=== PATIENT | female | born 1965 | race Caucasian/White ===

== ENCOUNTER 2018-05-18 12:29 | Emergency (ER) | payer BC ==
[2018-05-18] MEDS ORDERED: Sodium Chloride 0.9% 10 ML Syringe FLUSH PRN (12:30)
--- NOTE | 2018-05-18 12:30 | EDM.PDOC ---
ED HPI GENERAL MEDICAL PROBLEM - General Chief Complaint: Chest Pain Stated Complaint: CHEST PAIN, HIGH BP [id number] Time Seen by Provider: 05/18/18 12:30 Source of Information: Reports: Patient, EMS, Old Records, RN, RN Notes Reviewed History Limitations: Reports: No Limitations - History of Present Illness INITIAL COMMENTS - FREE TEXT/NARRATIVE: Pt arrives to ER by [facility] from work with c/o chest pain/ pressure, high BP, palpitations, and recurrent near syncope. EMS gave the pt Aspirin 324mg po x1 and Nitroglycerin 0.4mg SL x1 prior to arrival to the ER. Pt reports that the NTG made the chest pain go completely away. Pt reports onset of recurrent chest pain, palpitations, and syncope/near syncope about 2 or 3 weeks ago. She saw Yany CACERES in clinic about 2 weeks ago and her losartan was increased from 50mg to 100mg. She was referred for a cardiac stress test which she had done on 05/02/18, and reported as negative for cardiac ischemia. She followed up in clinic with Yany CACERES and was switched from Metoprolol to Atenolol. She has been referred to cardiology, but cannot be seen there for another 2 weeks. 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 Pt reports feeling fatigued for several weeks. On several occasions she has experienced tingling on her face and slightly slurred speech. When she has the lightheadedness she also feels that she becomes mentally "foggy". 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 x1 from paramedics) - Related Data Allergies Allergy/AdvReac Type Severity Reaction Status Date / Time carbamazepine [From Tegretol] Allergy Airway Verified 12/01/16 15:49 Tightness phenytoin sodium Allergy Airway Verified 12/01/16 15:49 [From Dilantin] Tightness phenytoin sodium extended Allergy Airway Verified 12/01/16 15:49 [From Dilantin] Tightness primidone [From Mysoline] Allergy Airway Verified 12/01/16 15:49 Tightness Home Meds: Home Meds Losartan [Cozaar] 100 mg PO DAILY 11/25/16 [History] Pantoprazole Sodium 40 mg PO DAILY 11/25/16 [History] Simvastatin 20 mg PO DAILY 11/25/16 [History] Aspirin [Ecotrin] 81 mg PO DAILY 05/02/18 [History] Past Medical History Other HEENT History: c/o ringing in ears, sometimes one ear, sometimes both for the last 2 weeks Cardiovascular History: Reports: High Cholesterol, Hypertension Other Cardiovascular History: has had irregular heart beat in the past. Denies any specific arrhythmia. Gastrointestinal History: Reports: GERD Genitourinary History: Reports: Renal Disease (renal artery stenosis) Other Genitourinary History: reports she has passed a small kidney stone in the past Musculoskeletal History: Reports: Fibromyalgia Other Neuro History: History of migraines, history of head injury and seizures during childhood. Endocrine/Metabolic History: Reports: Obesity/BMI 30+ Hematologic History: Reports: B12 Deficiency Other Hematologic History: History of iron infusions and low ferritin level - Past Surgical History Other Musculoskeletal Surgeries/Procedures:: right hip replacement Social & Family History - Family History Cardiac: Reports: Heart Failure (Mother of CHF.), PR (Father alive with history of PR in 50's, and PR x3 total.), Pacemaker (Father) - Tobacco Use Smoking Status *Q: Never Smoker - Caffeine Use Caffeine Use: Reports: Coffee Other Caffeine Use: 2 CUPS OF COFFEE AVERAGE DAILY - Alcohol Use Alcohol Use History: No - Living Situation & Occupation Living situation: Reports: , with Spouse Occupation: Employed ED ROS GENERAL - Review of Systems Review Of Systems: ROS reveals no pertinent complaints other than HPI. ED EXAM, GENERAL - Physical Exam Exam: See Below Exam Limited By: No Limitations General Appearance: Alert, WD/WN, No Apparent Distress, Anxious, Obese Eye Exam: Bilateral Eye: Normal Inspection Ears: Hearing Grossly Normal Nose: Normal Inspection, Normal Mucosa, No Blood Throat/Mouth: Normal Inspection, Normal Lips, Normal Voice, No Airway Compromise Head: Atraumatic, Normocephalic Neck: Normal Inspection, Supple, Non-Tender, Full Range of Motion Respiratory/Chest: No Respiratory Distress, Lungs Clear, Normal Breath Sounds, No Accessory Muscle Use, Chest Non-Tender Cardiovascular: Regular Rate, Rhythm, No Gallop, No JVD, No Murmur, No Rub, Extra Beats, Other (Trace edema B/L lower exts.) GI/Abdominal: Normal Bowel Sounds, Soft, Non-Tender, No Distention (Female) Exam: Deferred Rectal (Female) Exam: Deferred Back Exam: Normal Inspection, Full Range of Motion Extremities: Normal Range of Motion, Non-Tender, No Pedal Edema, Normal Capillary Refill, Pedal Edema (Trace). No: Joint Swelling, Nelly's Sign Neurological: Alert, Oriented, CN II-XII Intact, Normal Cognition, Normal Gait, No Motor/Sensory Deficits Psychiatric: Normal Affect, Normal Mood, Anxious Skin Exam: Warm, Dry, Intact, Normal Color, No Rash EKG INTERPRETATION EKG Date: 05/18/18 Time: 12:39 Rhythm: Other (SR) [place]: LAD-Left Hammond Deviation (LVH) P-Wave: Present QRS: Normal ST-T: Normal QT: Normal Comparison: No Change EKG Interpretation Comments: No acute ischemic change. Course - Vital Signs Last Recorded V/S: Last Vital Signs Temp 37.0 C 05/18/18 14:18 Pulse 61 05/18/18 14:18 Resp 16 05/18/18 14:18 BP 118/77 05/18/18 14:18 Pulse Ox 100 05/18/18 14:18 Orthostatic Blood Pressure [ 119/83 Standing] Orthostatic Blood Pressure [ 153/78 Sitting] Orthostatic Blood Pressure [ 139/73 Supine] Orthostatic sBP drop from 153 to 119 without dizziness or other symptoms. - Orders/Labs/Meds Orders: Active Orders 24 hr Category Date Time Status EKG 12 Lead [EKG Documentation Completion] [RC] STAT Care 05/18/18 12:30 Active Orthostatic Vital Signs [RC] ASDIRECTED Care 05/18/18 13:15 Active Peripheral IV Care [RC] . DIRECTED Care 05/18/18 12:31 Active Sodium Chloride 0.9% [Saline Flush] Med 05/18/18 12:30 Active 10 ml FLUSH ASDIRECTED PRN Peripheral IV Insertion Adult [OM.PC] Stat Oth 05/18/18 12:30 Ordered Medication Orders Sodium Chloride (Saline Flush) 10 ml FLUSH ASDIRECTED PRN PRN Reason: Keep Vein Open Labs: Laboratory Tests 05/18/18 05/18/18 05/18/18 Range/Units 12:40 12:40 12:40 WBC 6.1 (5.0-10.0) 10^3/uL RBC 4.32 (4.2-5.4) 10^6/uL Hgb 13.3 (12.0-16.0) g/dL Hct 40.6 (37.0-47.0) % MCV 94.0 (80-100) fL MCH 30.8 (27.0-34.0) pg MCHC 32.8 L (33.0-35.0) g/dL Plt Count 218 (150-450) 10^3/uL Neut % (Auto) 59.8 (42.2-75.2) % Lymph % (Auto) 29.7 (20.5-50.1) % Jack % (Auto) 7.2 (2-8) % Eos % (Auto) 2.8 (1.0-3.0) % Baso % (Auto) 0.5 (0.0-1.0) % PT 9.0 (9.0-12.0) SEC INR 0.9 (0.9-1.2) APTT 24.0 (22.0-34.0) SEC D-Dimer, Quantitative < 100 (0-400) ng/mL Sodium 142 (135-145) mmol/L Potassium 4.0 (3.6-5.0) mmol/L Chloride 106 (101-111) mmol/L Carbon Dioxide 29.0 (21.0-31.0) mmol/L Anion Gap 11.0 BUN 13 (7-18) mg/dL Creatinine 0.9 (0.6-1.3) mg/dL Est Cr Clr Drug Dosing 72.92 mL/min Estimated GFR (MDRD) > 60 BUN/Creatinine Ratio 14.44 Glucose 116 H (74-105) mg/dL Calcium 9.1 (8.4-10.2) mg/dl Total Bilirubin 0.5 (0.2-1.0) mg/dL AST 21 (10-42) IU/L ALT 22 (10-60) IU/L Alkaline Phosphatase 62 (42-121) IU/L Troponin I < 0.02 (0.00-0.02) ng/ml Total Protein 7.0 (6.7-8.2) g/dl Albumin 4.3 (3.2-5.5) g/dl Globulin 2.7 Albumin/Globulin Ratio 1.59 Lipase 25 (22-51) U/L Urine Color (YELLOW) Urine Appearance (CLEAR) Urine pH (5.0-9.0) Ur Specific [place] (1.005-1.030) Urine Protein (NEGATIVE) Urine Glucose (UA) (NEGATIVE) Urine Ketones (NEGATIVE) Urine Occult Blood (NEGATIVE) Urine Nitrite (NEGATIVE) Urine Bilirubin (NEGATIVE) Urine Urobilinogen (0.2-1.0) mg/dL Ur Leukocyte Esterase (NEGATIVE) Urine RBC /HPF Urine WBC (0-5/HPF) /HPF Ur Epithelial Cells /HPF Urine Bacteria (0-FEW/HPF) /HPF Urine Opiates Screen (NEGATIVE) Ur Oxycodone Screen (NEGATIVE) Urine Methadone Screen (NEGATIVE) Ur Barbiturates Screen (NEGATIVE) U Tricyclic Antidepress (NEGATIVE) Ur Phencyclidine Scrn (NEGATIVE) Ur Amphetamine Screen (NEGATIVE) U Methamphetamines Scrn (NEGATIVE) Urine MDMA Screen (NEGATIVE) U Benzodiazepines Scrn (NEGATIVE) Urine Cocaine Screen (NEGATIVE) U Marijuana (THC) Screen (NEGATIVE) Ethyl Alcohol < 5 mg/dL 05/18/18 05/18/18 Range/Units 13:01 13:01 WBC (5.0-10.0) 10^3/uL RBC (4.2-5.4) 10^6/uL Hgb (12.0-16.0) g/dL Hct (37.0-47.0) % MCV (80-100) fL MCH (27.0-34.0) pg MCHC (33.0-35.0) g/dL Plt Count (150-450) 10^3/uL Neut % (Auto) (42.2-75.2) % Lymph % (Auto) (20.5-50.1) % Jack % (Auto) (2-8) % Eos % (Auto) (1.0-3.0) % Baso % (Auto) (0.0-1.0) % PT (9.0-12.0) SEC INR (0.9-1.2) APTT (22.0-34.0) SEC D-Dimer, Quantitative (0-400) ng/mL Sodium (135-145) mmol/L Potassium (3.6-5.0) mmol/L Chloride (101-111) mmol/L Carbon Dioxide (21.0-31.0) mmol/L Anion Gap BUN (7-18) mg/dL Creatinine (0.6-1.3) mg/dL Est Cr Clr Drug Dosing mL/min Estimated GFR (MDRD) BUN/Creatinine Ratio Glucose (74-105) mg/dL Calcium (8.4-10.2) mg/dl Total Bilirubin (0.2-1.0) mg/dL AST (10-42) IU/L ALT (10-60) IU/L Alkaline Phosphatase (42-121) IU/L Troponin I (0.00-0.02) ng/ml Total Protein (6.7-8.2) g/dl Albumin (3.2-5.5) g/dl Globulin Albumin/Globulin Ratio Lipase (22-51) U/L Urine Color Yellow (YELLOW) Urine Appearance Clear (CLEAR) Urine pH 7.0 (5.0-9.0) Ur Specific [place] 1.015 (1.005-1.030) Urine Protein Negative (NEGATIVE) Urine Glucose (UA) Negative (NEGATIVE) Urine Ketones Negative (NEGATIVE) Urine Occult Blood Small H (NEGATIVE) Urine Nitrite Negative (NEGATIVE) Urine Bilirubin Negative (NEGATIVE) Urine Urobilinogen 0.2 (0.2-1.0) mg/dL Ur Leukocyte Esterase Negative (NEGATIVE) Urine RBC 5-10 H /HPF Urine WBC 0-5 (0-5/HPF) /HPF Ur Epithelial Cells Few /HPF Urine Bacteria Rare (0-FEW/HPF) /HPF Urine Opiates Screen Negative (NEGATIVE) Ur Oxycodone Screen Negative (NEGATIVE) Urine Methadone Screen Negative (NEGATIVE) Ur Barbiturates Screen Negative (NEGATIVE) U Tricyclic Antidepress Negative (NEGATIVE) Ur Phencyclidine Scrn Negative (NEGATIVE) Ur Amphetamine Screen Negative (NEGATIVE) U Methamphetamines Scrn Negative (NEGATIVE) Urine MDMA Screen Negative (NEGATIVE) U Benzodiazepines Scrn Negative (NEGATIVE) Urine Cocaine Screen Negative (NEGATIVE) U Marijuana (THC) Screen Negative (NEGATIVE) Ethyl Alcohol mg/dL Meds: Medications Generic Name Dose Route Start Last Admin Trade Name Freq PRKayeln Reason Stop Dose Admin Sodium Chloride 10 ml 05/18/18 12:30 Saline Flush FLUSH ASDIRECTED PRN Keep Vein Open - Radiology Interpretation Free Text/Narrative:: CXR: no acute process, see Rad. report. - Re-Assessments/Exams Free Text/Narrative Re-Assessment/Exam: 05/18/18 14:10 Pt's ER evaluation is negative for AMI/ACS, however I concerned about the recurring syncope/near syncope she has been experiencing. Exam and negative D- dimer make her very low risk for a P.E. Plan to transfer the pt to [facility] for observation and further evaluation. I do not think it is in the pt's best interest to wait for an outpt. clinic evaluation, given her description of the symptoms and their recurrent nature. Departure - Departure Time of Disposition: 14:20 Disposition: DC/Tfer to [facility] 02 Reason for Transfer *Q: Primary PCI Indicated Condition: Serious Clinical Impression: Recurrent syncope, Palpitations Chest pain Qualifiers: Chest pain type: unspecified Qualified Code(s): R07.9 - Chest pain, unspecified Referrals: Verónica Live PA-C [Primary Care Provider] - Forms: ED Department Discharge, Interfacility Transfer EMTALA - My Orders Last 24 Hours: My Active Orders 05/18/18 12:30 EKG 12 Lead [EKG Documentation Completion] [RC] STAT Sodium Chloride 0.9% [Saline Flush] 10 ml FLUSH ASDIRECTED PRN Peripheral IV Insertion Adult [OM.PC] Stat 05/18/18 12:31 Peripheral IV Care [RC] . DIRECTED 05/18/18 13:15 Orthostatic Vital Signs [RC] ASDIRECTED - Assessment/Plan Last 24 Hours: My Active Orders 05/18/18 12:30 EKG 12 Lead [EKG Documentation Completion] [RC] STAT Sodium Chloride 0.9% [Saline Flush] 10 ml FLUSH ASDIRECTED PRN Peripheral IV Insertion Adult [OM.PC] Stat 05/18/18 12:31 Peripheral IV Care [RC] . DIRECTED 05/18/18 13:15 Orthostatic Vital Signs [RC] ASDIRECTED
[2018-05-18 13:07] LABS: CHLORIDE,CL 106 mmol/L (101-111); SODIUM,NA 142 mmol/L (135-145)
--- NOTE | 2018-05-18 13:38 | CR ---
Clinical history: 53-year-old female chest pain. Interpretation: Less than optimal inspiratory effort (upright AP film) obese female. No acute new cardiopulmonary abnormality identified in the interval since 11 June 2015 exam. 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 No new signs of alveolar edema or dependent effusion. No new lung mass, hilar lymphadenopathy or focal lobar pneumonia.
[2018-05-18 15:55] VITALS: BP 141/97
== END 2018-05-18 16:00 ==
LOC: SUPCPDRO 12:29 → DL.ED 12:29
DX: R00.2 Palpitations (principal); R55 Syncope and collapse; R07.9 Chest pain, unspecified; E78.00 Pure hypercholesterolemia, unspecified; I10 Essential (primary) hypertension; Z88.8 Allergy status to other drugs, medicaments and biological substances; Z79.899 Other long term (current) drug therapy
CPT/HCPCS: 36415; 71045; 80053; 80305; 81001; 83690; 84484; 85025; 85379; 85610; 85730; 93005; 99285; G0480

== ENCOUNTER 2018-10-23 10:01 | Emergency (ER) | payer BC ==
[2018-10-23] MEDS ORDERED: Ondansetron 4 MG/2 ML SDV IV ONE (10:37)
[2018-10-23 10:40] VITALS: BP 143/76
[2018-10-23 10:59] LABS: ANION GAP 14.5; CHLORIDE,CL 103 mmol/L (101-111); SODIUM,NA 137 mmol/L (135-145)
--- NOTE | 2018-10-23 12:32 | CT ---
Clinical history: 53-year-old female with nausea, light headedness and recent "syncopal episode" who was reported on previous MRI scan of the head, March 2008, to have "punctate white matter abnormalities involving primarily the right frontal lobe (nonspecific) and sinusitis". Scan technique: Volume acquisition of data unenhanced CT scan of the head and brain obtained while the patient was lying supine on the Siemens multi slice scanner [place], [place]. All data archived in the PACS system for storage, reformatting axial/sagittal/coronal planes and study. Interpretation: 1. Symmetric clear pneumatization of the paranasal and mastoid sinuses i.e. no current signs of mucoperiosteal inflammation. 2. Uniformly thick bony calvarium without sign of pathologic skeletal lesion, skull fracture or underlying brain contusion. No abnormal extracerebral/intracranial epidural or subdural hematoma (physiologic midline falx calcifications anteriorly). 3. Symmetric noble-white matter pattern and underlying mirror-image normal ventricular system (no hydrocephalus). Pineal Ca++. 4. No supratentorial or posterior fossa mass lesion. No sign of intracranial aneurysm or arteriovenous malformation (unenhanced). Physiologic midline pineal and symmetric choroid plexus calcifications. 5. No ischemic infarct and no signs of acute intracerebral/intraventricular/subarachnoid bleed. CONCLUSION: Negative unenhanced CT scan of the head
--- NOTE | 2018-10-23 12:45 | EDM.PDOC ---
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 Patient states she passed out and her blood pressure has been high. She states she sees Dr. Macias and was recently started on another blood pressure med. Patient's co-workers state the patient "Went down and got right back up again". Blood pressure at that time was 180s/120s. She states she had pressure in the back of the head just prior to the episode. Her speech was not coming out right but now resolved. She has had nausea, lightheadedness, shortness of breath and chills. She has had no vomiting, chest pain, fever, recent illness or diarrhea. Onset: Today Duration: Improving Location: Reports: Generalized Quality: Reports: Ache Severity: Severe Improves with: Reports: None Worsens with: Reports: None Associated Symptoms: Reports: No Other Symptoms - Related Data Allergies Allergy/AdvReac Type Severity Reaction Status Date / Time carbamazepine [From Tegretol] Allergy Airway Verified 10/23/18 10:32 Tightness phenytoin sodium Allergy Airway Verified 10/23/18 10:32 [From Dilantin] Tightness phenytoin sodium extended Allergy Airway Verified 10/23/18 10:32 [From Dilantin] Tightness primidone [From Mysoline] Allergy Airway Verified 10/23/18 10:32 Tightness Home Meds: Home Meds Losartan [Cozaar] 100 mg PO DAILY 11/25/16 [History] Pantoprazole Sodium 40 mg PO DAILY 11/25/16 [History] Simvastatin 20 mg PO DAILY 11/25/16 [History] Aspirin [Ecotrin] 81 mg PO DAILY 05/02/18 [History] Amoxicillin 500 mg PO QID 06/28/18 [History] NIFEdipine [Nifedipine ER] 30 mg PO DAILY 06/28/18 [History] Past Medical History Other HEENT History: c/o ringing in ears, sometimes one ear, sometimes both for the last 2 weeks Cardiovascular History: Reports: High Cholesterol, Hypertension Other Cardiovascular History: has had irregular heart beat in the past. Denies any specific arrhythmia. Gastrointestinal History: Reports: GERD Genitourinary History: Reports: Renal Disease, Other (See Below) (renal stenosis ) Other Genitourinary History: reports she has passed a small kidney stone in the past Musculoskeletal History: Reports: Fibromyalgia Other Neuro History: History of migraines, history of head injury and seizures during childhood. Endocrine/Metabolic History: Reports: Obesity/BMI 30+ Hematologic History: Reports: B12 Deficiency Other Hematologic History: History of iron infusions and low ferritin level - Past Surgical History Other Musculoskeletal Surgeries/Procedures:: right hip replacement Social & Family History - Family History Cardiac: Reports: Heart Failure, ID, Pacemaker - Tobacco Use Smoking Status *Q: Never Smoker - Caffeine Use Caffeine Use: Reports: Coffee Other Caffeine Use: 2 CUPS OF COFFEE AVERAGE DAILY - Recreational Drug Use Recreational Drug Use: No - Living Situation & Occupation Living situation: Reports: , with Spouse Occupation: Employed ED ROS GENERAL - Review of Systems Review Of Systems: ROS reveals no pertinent complaints other than HPI. - Physical Exam Exam: See Below Exam Limited By: No Limitations General Appearance: Alert, WD/WN, No Apparent Distress Eye Exam: Bilateral Eye: EOMI, Normal Inspection, PERRL Ears: Normal External Exam, Normal Canal, Hearing Grossly Normal, Normal TMs Nose: Normal Inspection, Normal Mucosa, No Blood Throat/Mouth: Normal Inspection, Normal Lips, Normal Teeth, Normal Gums, Normal Oropharynx, Normal Voice, No Airway Compromise Head Exam: Atraumatic, Normocephalic Neck: Normal Inspection, Supple, Non-Tender, Full Range of Motion Respiratory/Chest: No Respiratory Distress, Lungs Clear, Normal Breath Sounds, No Accessory Muscle Use, Chest Non-Tender Cardiovascular: Normal Peripheral Pulses, Regular Rate, Rhythm, No Edema, No Gallop, No JVD, No Murmur, No Rub GI/Abdominal: Normal Bowel Sounds, Soft, Non-Tender, No Organomegaly, No Distention, No Abnormal Bruit, No Mass (Female) Exam: Deferred Rectal (Female) Exam: Deferred Neuro Exam (Abbreviated): Alert, Oriented, CN II-XII Intact, Normal Cognition, Normal Gait, Normal Reflexes, No Motor/Sensory Deficits Back Exam: Normal Inspection, Full Range of Motion, NT Extremities: Normal Inspection, Normal Range of Motion, Non-Tender, No Pedal Edema, Normal Capillary Refill Psychiatric: Normal Affect, Normal Mood Skin Exam: Warm, Dry, Intact, Normal Color, No Rash EKG INTERPRETATION EKG Date: 10/23/18 Time: 10:16 Rhythm: Other (sinus rhythm) Rate (Beats/Min): 72 [place]: Normal P-Wave: Present QRS: Normal ST-T: Normal QT: Normal Course - Vital Signs Last Recorded V/S: Last Vital Signs Temp 98.3 F 10/23/18 10:33 Pulse 83 10/23/18 10:33 Resp 16 10/23/18 10:33 BP 143/76 H 10/23/18 10:33 Pulse Ox 99 10/23/18 10:33 - Orders/Labs/Meds Labs: Laboratory Tests 10/23/18 10/23/18 10/23/18 Range/Units 10:21 10:21 10:21 WBC 5.5 (5.0-10.0) 10^3/uL RBC 4.43 (4.2-5.4) 10^6/uL Hgb 14.0 (12.0-16.0) g/dL Hct 42.0 (37.0-47.0) % MCV 94.8 (80-100) fL MCH 31.6 (27.0-34.0) pg MCHC 33.3 (33.0-35.0) g/dL Plt Count 214 (150-450) 10^3/uL Neut % (Auto) 55.8 (42.2-75.2) % Lymph % (Auto) 31.3 (20.5-50.1) % [place] % (Auto) 8.9 H (2-8) % Eos % (Auto) 3.5 H (1.0-3.0) % Baso % (Auto) 0.5 (0.0-1.0) % PT 8.8 L (9.0-12.0) SEC INR 0.9 (0.9-1.2) Sodium 137 (135-145) mmol/L Potassium 4.5 (3.6-5.0) mmol/L Chloride 103 (101-111) mmol/L Carbon Dioxide 24.0 (21.0-31.0) mmol/L Anion Gap 14.5 BUN 13 (7-18) mg/dL Creatinine 0.9 (0.6-1.3) mg/dL Est Cr Clr Drug Dosing 72.92 mL/min Estimated GFR (MDRD) > 60 BUN/Creatinine Ratio 14.44 Glucose 89 (74-105) mg/dL Calcium 9.1 (8.4-10.2) mg/dl Total Bilirubin 0.6 (0.2-1.0) mg/dL AST 18 (10-42) IU/L ALT 20 (10-60) IU/L Alkaline Phosphatase 66 (42-121) IU/L Troponin I < 0.02 (0.00-0.02) ng/ml Total Protein 6.9 (6.7-8.2) g/dl Albumin 4.3 (3.2-5.5) g/dl Globulin 2.6 Albumin/Globulin Ratio 1.65 Urine Color (YELLOW) Urine Appearance (CLEAR) Urine pH (5.0-9.0) Ur Specific [place] (1.005-1.030) Urine Protein (NEGATIVE) Urine Glucose (UA) (NEGATIVE) Urine Ketones (NEGATIVE) Urine Occult Blood (NEGATIVE) Urine Nitrite (NEGATIVE) Urine Bilirubin (NEGATIVE) Urine Urobilinogen (0.2-1.0) mg/dL Ur Leukocyte Esterase (NEGATIVE) Urine RBC /HPF Urine WBC (0-5/HPF) /HPF Ur Epithelial Cells /HPF Urine Bacteria (0-FEW/HPF) /HPF /08/01 Range/Units 11:03 WBC (5.0-10.0) 10^3/uL RBC (4.2-5.4) 10^6/uL Hgb (12.0-16.0) g/dL Hct (37.0-47.0) % MCV (80-100) fL MCH (27.0-34.0) pg MCHC (33.0-35.0) g/dL Plt Count (150-450) 10^3/uL Neut % (Auto) (42.2-75.2) % Lymph % (Auto) (20.5-50.1) % [place] % (Auto) (2-8) % Eos % (Auto) (1.0-3.0) % Baso % (Auto) (0.0-1.0) % PT (9.0-12.0) SEC INR (0.9-1.2) Sodium (135-145) mmol/L Potassium (3.6-5.0) mmol/L Chloride (101-111) mmol/L Carbon Dioxide (21.0-31.0) mmol/L Anion Gap BUN (7-18) mg/dL Creatinine (0.6-1.3) mg/dL Est Cr Clr Drug Dosing mL/min Estimated GFR (MDRD) BUN/Creatinine Ratio Glucose (74-105) mg/dL Calcium (8.4-10.2) mg/dl Total Bilirubin (0.2-1.0) mg/dL AST (10-42) IU/L ALT (10-60) IU/L Alkaline Phosphatase (42-121) IU/L Troponin I (0.00-0.02) ng/ml Total Protein (6.7-8.2) g/dl Albumin (3.2-5.5) g/dl Globulin Albumin/Globulin Ratio Urine Color Yellow (YELLOW) Urine Appearance Clear (CLEAR) Urine pH 7.0 (5.0-9.0) Ur Specific [place] 1.010 (1.005-1.030) Urine Protein Negative (NEGATIVE) Urine Glucose (UA) Negative (NEGATIVE) Urine Ketones Negative (NEGATIVE) Urine Occult Blood Trace-lysed H (NEGATIVE) Urine Nitrite Negative (NEGATIVE) Urine Bilirubin Negative (NEGATIVE) Urine Urobilinogen 0.2 (0.2-1.0) mg/dL Ur Leukocyte Esterase Trace H (NEGATIVE) Urine RBC 0-5 /HPF Urine WBC 0-5 (0-5/HPF) /HPF Ur Epithelial Cells Not seen /HPF Urine Bacteria Rare (0-FEW/HPF) /HPF Meds: Medications Discontinued Medications Generic Name Dose Route Start Last Admin Trade Name Freq PRN Reason Stop Dose Admin Ondansetron HCl 4 mg 10/23/18 10:37 10/23/18 10:41 Zofran IV 10/23/18 10:38 4 mg ONETIME ONE Administration - Radiology Interpretation Free Text/Narrative:: Head CT: No acute findings See rad report Departure - Departure Time of Disposition: 12:45 Disposition: Home, Self-Care 01 Condition: Fair Clinical Impression: Syncope Qualifiers: Syncope type: unspecified Qualified Code(s): R55 - Syncope and collapse - Discharge Information *PRESCRIPTION DRUG MONITORING PROGRAM REVIEWED*: No *COPY OF PRESCRIPTION DRUG MONITORING REPORT IN PATIENT SHANI: No Instructions: Syncope, [id number] Referrals: Opal Macias MD [Primary Care Provider] - Forms: ED Department Discharge Additional Instructions: Drink plenty of water Follow up with your primary care facility
--- NOTE | 2018-10-24 10:17 | CR ---
CLINICAL HISTORY: 53-year-old female with "syncopal episode". 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 Normal cardiac silhouette without cephalization of flow, signs of alveolar edema or dependent pleural fluid accumulation. Isolated small eventration right hemidiaphragm. No lung mass, hilar lymphadenopathy or focal lobar pneumonia. No atelectasis/collapse. No pneumothorax. CONCLUSION: No acute cardiopulmonary abnormality.
== END 2018-10-23 13:05 | disposition home or self-care (01) ==
LOC: DL.ED 10:01
DX: R55 Syncope and collapse (principal); I10 Essential (primary) hypertension; E66.9 Obesity, unspecified; Z79.82 Long term (current) use of aspirin; Z79.899 Other long term (current) drug therapy; Z88.8 Allergy status to other drugs, medicaments and biological substances; X58.XXXA Exposure to other specified factors, initial encounter; Y92.219 Unspecified school as the place of occurrence of the external cause; Y99.0 Civilian activity done for income or pay
CPT/HCPCS: 36415; 70450; 71046; 80053; 81001; 84484; 85025; 85610; 87086; 93005; 96374; 99284; J2405

== ENCOUNTER 2018-11-27 18:38 | Emergency (ER) | payer BC ==
[2018-11-27] MEDS ORDERED: Sodium Chloride 0.9% 10 ML Syringe FLUSH PRN (19:03)
[2018-11-27 19:06] VITALS: BP 154/87
--- NOTE | 2018-11-27 19:08 | EDM.PDOC ---
ED HPI GENERAL MEDICAL PROBLEM - General Chief Complaint: Genitourinary Problem Stated Complaint: BLADDER/KIDNEY INFECTION? GAVIN BLOOD [id number] Time Seen by Provider: 11/27/18 19:07 Source of Information: Reports: Patient, RN, RN Notes Reviewed History Limitations: Reports: No Limitations - History of Present Illness INITIAL COMMENTS - FREE TEXT/NARRATIVE: Pt to ER with c/o urgency, frequency, burning with urination, blood in urine since this morning. Patient states last night, about 2 hours after eating a hotdog, the patient experienced severe RUQ pain that wrapped around to the back. The pain subsided, but this morning she began with the urinary sx. Patient admits to fever, chills, nausea, and a "few loose stools, but not diarrhea". Patient denies vomiting. Patient presents with a non-raised red rash to the neck area. Patient admits to a hx of kidney stones (15 yrs ago), and still having her gallbladder. Onset: Gradual Lower Abdominal Pain Score (Numeric/FACES): 4 - Related Data Allergies Allergy/AdvReac Type Severity Reaction Status Date / Time carbamazepine [From Tegretol] Allergy Airway Verified 11/27/18 18:50 Tightness phenytoin sodium Allergy Airway Verified 11/27/18 18:50 [From Dilantin] Tightness phenytoin sodium extended Allergy Airway Verified 11/27/18 18:50 [From Dilantin] Tightness primidone [From Mysoline] Allergy Airway Verified 11/27/18 18:50 Tightness Home Meds: Home Meds Losartan [Cozaar] 100 mg PO DAILY 11/25/16 [History] Pantoprazole Sodium 40 mg PO DAILY 11/25/16 [History] Simvastatin 20 mg PO DAILY 11/25/16 [History] Aspirin [Ecotrin] 81 mg PO DAILY 05/02/18 [History] NIFEdipine [Nifedipine ER] 30 mg PO DAILY 06/28/18 [History] Spironolactone [Aldactone] 25 mg PO DAILY 11/27/18 [History] Past Medical History Other HEENT History: c/o ringing in ears, sometimes one ear, sometimes both for the last 2 weeks Cardiovascular History: Reports: High Cholesterol, Hypertension Other Cardiovascular History: has had irregular heart beat in the past. Denies any specific arrhythmia. Gastrointestinal History: Reports: GERD Genitourinary History: Reports: Renal Disease, Other (See Below) (renal stenosis ) Other Genitourinary History: reports she has passed a small kidney stone in the past Musculoskeletal History: Reports: Fibromyalgia Other Neuro History: History of migraines, history of head injury and seizures during childhood. Endocrine/Metabolic History: Reports: Obesity/BMI 30+ Hematologic History: Reports: B12 Deficiency Other Hematologic History: History of iron infusions and low ferritin level - Past Surgical History Other Musculoskeletal Surgeries/Procedures:: right hip replacement Social & Family History - Family History Cardiac: Reports: Heart Failure, [place], Pacemaker - Caffeine Use Caffeine Use: Reports: Coffee Other Caffeine Use: 2 CUPS OF COFFEE AVERAGE DAILY - Living Situation & Occupation Living situation: Reports: , with Spouse Occupation: Employed ED ROS GENERAL - Review of Systems Review Of Systems: ROS reveals no pertinent complaints other than HPI. ED EXAM, RENAL/ - Physical Exam Exam: See Below Exam Limited By: No Limitations General Appearance: Alert, WD/WN, No Apparent Distress Eye Exam: Bilateral Eye: EOMI, Normal Inspection Ears: Normal External Exam, Hearing Grossly Normal Nose: Normal Inspection Throat/Mouth: Normal Inspection, Normal Voice, No Airway Compromise Head: Atraumatic, Normocephalic Neck: Normal Inspection, Supple, Non-Tender, Full Range of Motion Respiratory/Chest: No Respiratory Distress, Lungs Clear, Normal Breath Sounds, No Accessory Muscle Use, Chest Non-Tender Cardiovascular: Normal Peripheral Pulses, Regular Rate, Rhythm, No Edema, No Gallop, No JVD, No Murmur, No Rub GI/Abdominal: Normal Bowel Sounds, Soft, No Distention, Tender (generalized) (Female) Exam: Deferred Rectal (Female) Exam: Deferred Back Exam: Normal Inspection, Full Range of Motion, CVA Tenderness (L), CVA Tenderness (R) Extremities: Normal Inspection, Normal Range of Motion, Non-Tender, Normal Capillary Refill, No Pedal Edema Neurological: Alert, Oriented, CN II-XII Intact, Normal Cognition, Normal Gait, Normal Reflexes, No Motor/Sensory Deficits Psychiatric: Normal Affect, Normal Mood Skin Exam: Warm, Dry, Intact, Normal Color, No Rash, Rash (erythematous, non- raised to the anterior neck) Lymphatic: No Adenopathy Course - Vital Signs Last Recorded V/S: Last Vital Signs Temp 99.8 F 11/27/18 19:04 Pulse 96 11/27/18 19:04 Resp 18 11/27/18 19:04 BP 154/87 H 11/27/18 19:04 Pulse Ox 98 11/27/18 19:04 - Orders/Labs/Meds Orders: Active Orders 24 hr Category Date Time Status Peripheral IV Care [RC] . DIRECTED Care 11/27/18 19:04 Active Abdomen Pelvis w wo Cont [CT] Urgent Exams 11/27/18 19:28 Taken CULTURE BLOOD [BC] Stat Lab 11/27/18 19:19 Received CULTURE BLOOD [BC] Stat Lab 11/27/18 19:39 Received CULTURE URINE [RM] Routine Lab 11/27/18 19:06 Received Blood Culture x2 Reflex Set [OM.PC] Stat Oth 11/27/18 19:04 Ordered Peripheral IV Insertion Adult [OM.PC] Stat Oth 11/27/18 19:03 Ordered Labs: Laboratory Tests 11/27/18 11/27/18 11/27/18 Range/Units 19:06 19:19 19:19 WBC 9.8 (5.0-10.0) 10^3/uL RBC 4.28 (4.2-5.4) 10^6/uL Hgb 13.4 (12.0-16.0) g/dL Hct 40.2 (37.0-47.0) % MCV 93.9 (80-100) fL MCH 31.3 (27.0-34.0) pg MCHC 33.3 (33.0-35.0) g/dL Plt Count 212 (150-450) 10^3/uL Neut % (Auto) 76.5 H (42.2-75.2) % Lymph % (Auto) 15.3 L (20.5-50.1) % [place] % (Auto) 5.6 (2-8) % Eos % (Auto) 2.4 (1.0-3.0) % Baso % (Auto) 0.2 (0.0-1.0) % Sodium 138 (135-145) mmol/L Potassium 3.2 L (3.6-5.0) mmol/L Chloride 102 (101-111) mmol/L Carbon Dioxide 24.0 (21.0-31.0) mmol/L Anion Gap 15.2 BUN 12 (7-18) mg/dL Creatinine 0.9 (0.6-1.3) mg/dL Est Cr Clr Drug Dosing 72.92 mL/min Estimated GFR (MDRD) > 60 BUN/Creatinine Ratio 13.33 Glucose 101 (74-105) mg/dL Lactic Acid (0.5-2.2) mmol/L Calcium 9.2 (8.4-10.2) mg/dl Total Bilirubin 0.5 (0.2-1.0) mg/dL AST 22 (10-42) IU/L ALT 18 (10-60) IU/L Alkaline Phosphatase 68 (42-121) IU/L Total Protein 6.8 (6.7-8.2) g/dl Albumin 4.2 (3.2-5.5) g/dl Globulin 2.6 Albumin/Globulin Ratio 1.62 Urine Color Red (YELLOW) Urine Appearance Turbid (CLEAR) Urine pH 5.5 (5.0-9.0) Ur Specific [place] 1.025 (1.005-1.030) Urine Protein >=300 H (NEGATIVE) Urine Glucose (UA) Negative (NEGATIVE) Urine Ketones Trace H (NEGATIVE) Urine Occult Blood Large H (NEGATIVE) Urine Nitrite Positive H (NEGATIVE) Urine Bilirubin Small H (NEGATIVE) Urine Urobilinogen 0.2 (0.2-1.0) mg/dL Ur Leukocyte Esterase Large H (NEGATIVE) Urine RBC Packed H /HPF Urine WBC 50-75 H (0-5/HPF) /HPF Ur Epithelial Cells Few /HPF Amorphous Sediment Rare (0/HPF) /HPF Urine Bacteria Moderate H (0-FEW/HPF) /HPF Urine Mucus Occasional /LPF Urinalysis Comment See note 11/27/18 Range/Units 19:19 WBC (5.0-10.0) 10^3/uL RBC (4.2-5.4) 10^6/uL Hgb (12.0-16.0) g/dL Hct (37.0-47.0) % MCV (80-100) fL MCH (27.0-34.0) pg MCHC (33.0-35.0) g/dL Plt Count (150-450) 10^3/uL Neut % (Auto) (42.2-75.2) % Lymph % (Auto) (20.5-50.1) % [place] % (Auto) (2-8) % Eos % (Auto) (1.0-3.0) % Baso % (Auto) (0.0-1.0) % Sodium (135-145) mmol/L Potassium (3.6-5.0) mmol/L Chloride (101-111) mmol/L Carbon Dioxide (21.0-31.0) mmol/L Anion Gap BUN (7-18) mg/dL Creatinine (0.6-1.3) mg/dL Est Cr Clr Drug Dosing mL/min Estimated GFR (MDRD) BUN/Creatinine Ratio Glucose (74-105) mg/dL Lactic Acid 1.3 (0.5-2.2) mmol/L Calcium (8.4-10.2) mg/dl Total Bilirubin (0.2-1.0) mg/dL AST (10-42) IU/L ALT (10-60) IU/L Alkaline Phosphatase (42-121) IU/L Total Protein (6.7-8.2) g/dl Albumin (3.2-5.5) g/dl Globulin Albumin/Globulin Ratio Urine Color (YELLOW) Urine Appearance (CLEAR) Urine pH (5.0-9.0) Ur Specific [place] (1.005-1.030) Urine Protein (NEGATIVE) Urine Glucose (UA) (NEGATIVE) Urine Ketones (NEGATIVE) Urine Occult Blood (NEGATIVE) Urine Nitrite (NEGATIVE) Urine Bilirubin (NEGATIVE) Urine Urobilinogen (0.2-1.0) mg/dL Ur Leukocyte Esterase (NEGATIVE) Urine RBC /HPF Urine WBC (0-5/HPF) /HPF Ur Epithelial Cells /HPF Amorphous Sediment (0/HPF) /HPF Urine Bacteria (0-FEW/HPF) /HPF Urine Mucus /LPF Urinalysis Comment Meds: Medications Discontinued Medications Generic Name Dose Route Start Last Admin Trade Name Freq PRN Reason Stop Dose Admin Sodium Chloride 1,000 mls @ 999 mls/hr 11/27/18 20:14 11/27/18 20:19 Normal Saline IV 11/27/18 21:14 999 mls/hr .BOLUS ONE Administration Iopamidol 100 ml 11/27/18 19:53 11/27/18 19:54 Isovue-300 (61%) IVPUSH 11/27/18 19:54 98 ml ONETIME ONE Administration Morphine Sulfate 2 mg 11/27/18 20:23 11/27/18 20:31 Morphine IVPUSH 11/27/18 20:24 2 mg ONETIME ONE Administration Nitrofurantoin Macrocrystals 100 mg 11/27/18 20:49 11/27/18 20:55 Macrobid PO 11/27/18 20:50 100 mg ONETIME ONE Administration Ondansetron HCl 4 mg 11/27/18 20:23 11/27/18 20:29 Zofran IV 11/27/18 20:24 4 mg ONETIME ONE Administration Phenazopyridine HCl 190 mg 11/27/18 20:49 11/27/18 20:55 Urinary Pain Relief PO 11/27/18 20:50 190 mg ONETIME ONE Administration Sodium Chloride 10 ml 11/27/18 19:03 11/27/18 19:17 Saline Flush FLUSH 10 ml ASDIRECTED PRN Administration Keep Vein Open - Radiology Interpretation Free Text/Narrative:: CT Abdomen/Pelvis with and wo contrast: FINDINGS: Lower thorax: No acute findings. ABDOMEN: Liver: Normal. No mass. Gallbladder and bile ducts: The gallbladder is small and contracted. There is no sign of radiopaque gallstones. Pancreas: Normal. No ductal dilation. Spleen: Normal. No splenomegaly. Adrenals: Normal. No mass. Kidneys and ureters: Normal. No hydronephrosis. Stomach and bowel: There are bilateral hip prostheses which produce dense streak artifact in the region of the urinary bladder and rectosigmoid colon. Appendix: A normal appendix is seen on series 5 transaxial image 66. PELVIS: Bladder: Unremarkable as visualized. Reproductive: Unremarkable as visualized. ABDOMEN and PELVIS: Intraperitoneal space: Normal. No free air. No significant fluid collection. Bones/joints: No acute fracture. No dislocation. Soft tissues: Unremarkable. Vasculature: Normal. No abdominal aortic aneurysm. Lymph nodes: Normal. No enlarged lymph nodes. IMPRESSION: 1. No sign of radiopaque gallstones. 2. No sign of acute abnormality in the abdomen or pelvis. Thank you for allowing us to participate in the care of your patient. Dictated and Authenticated by: Ulises Gardner DO 11/27/2018 8:45 PM Central Time ([place] & [place]) See rad report Departure - Departure Time of Disposition: 20:49 Disposition: Home, Self-Care 01 Condition: Fair Clinical Impression: UTI, Urinary tract infectious disease - Discharge Information *PRESCRIPTION DRUG MONITORING PROGRAM REVIEWED*: No *COPY OF PRESCRIPTION DRUG MONITORING REPORT IN PATIENT SHANI: No Instructions: Urinary Tract Infection, Adult, [id number], You've Been Prescribed Antibiotics in the Hospital for Infection-[facility] [place] (11/29) Referrals: PCP,None [Primary Care Provider] - Forms: ED Department Discharge Additional Instructions: Drink plenty of water RX: Pyridium, Macrobid Follow up with your primary care facility - My Orders Last 24 Hours: My Active Orders 11/27/18 19:03 Peripheral IV Insertion Adult [OM.PC] Stat 11/27/18 19:04 Peripheral IV Care [RC] . DIRECTED Blood Culture x2 Reflex Set [OM.PC] Stat 11/27/18 19:06 CULTURE URINE [RM] Routine 11/27/18 19:19 CULTURE BLOOD [BC] Stat 11/27/18 19:28 Abdomen Pelvis w wo Cont [CT] Urgent 11/27/18 19:39 CULTURE BLOOD [BC] Stat - Assessment/Plan Last 24 Hours: My Active Orders 11/27/18 19:03 Peripheral IV Insertion Adult [OM.PC] Stat 11/27/18 19:04 Peripheral IV Care [RC] . DIRECTED Blood Culture x2 Reflex Set [OM.PC] Stat 11/27/18 19:06 CULTURE URINE [RM] Routine 11/27/18 19:19 CULTURE BLOOD [BC] Stat 11/27/18 19:28 Abdomen Pelvis w wo Cont [CT] Urgent 11/27/18 19:39 CULTURE BLOOD [BC] Stat
[2018-11-27 19:46] LABS: ANION GAP 15.2; CHLORIDE,CL 102 mmol/L (101-111); SODIUM,NA 138 mmol/L (135-145)
[2018-11-27] MEDS ORDERED: Iopamidol 612 MG/ML 100 ML Bottle IVPUSH ONE (19:53)
[2018-11-27] MEDS ORDERED: Sodium Chloride 0.9% 1,000 ML IV ONE (20:14)
[2018-11-27] MEDS ORDERED: Morphine 2 MG/ML Syringe IVPUSH ONE (20:23)
[2018-11-27] MEDS ORDERED: Ondansetron 4 MG/2 ML SDV IV ONE (20:23)
[2018-11-27] MEDS ORDERED: Phenazopyridine 95 MG Tab PO ONE (20:49)
[2018-11-27] MEDS ORDERED: Nitrofurantoin Monohydrate/Macrocrystalline 100 MG Cap PO ONE (20:49)
== END 2018-11-27 21:22 | disposition home or self-care (01) ==
LOC: DL.ED 18:38
DX: N39.0 Urinary tract infection, site not specified (principal); E78.00 Pure hypercholesterolemia, unspecified; I10 Essential (primary) hypertension; K21.9 Gastro-esophageal reflux disease without esophagitis; Z88.8 Allergy status to other drugs, medicaments and biological substances; Z79.899 Other long term (current) drug therapy
CPT/HCPCS: 36415; 74178; 80053; 81001; 83605; 85025; 87040; 87086; 87088; 87186; 96374; 96375; 99284-25; A9270-GY; J2270; J2405; J7030; Q9967

== ENCOUNTER 2019-09-21 14:28 | Emergency (ER) | payer BC ==
[2019-09-21] MEDS ORDERED: Benzonatate 100 MG Cap PO ONE (14:42)
[2019-09-21] MEDS ORDERED: Acetaminophen 325 MG Tab PO ONE (14:42)
[2019-09-21 14:50] VITALS: BP 158/64; PULSE 121
[2019-09-21] MEDS ORDERED: Sodium Chloride 0.9% 1,000 ML IV ONE (15:11)
[2019-09-21 15:14] LABS: ANION GAP 13.5; CHLORIDE,CL 104 mmol/L (101-111); SODIUM,NA 136 mmol/L (135-145)
--- NOTE | 2019-09-21 15:33 | EDM.PDOC ---
Scribed by Shazia Brandt 09/21/19 [id number] for Michael Carey MD ED HPI GENERAL MEDICAL PROBLEM - General Chief Complaint: Respiratory Problem Stated Complaint: HEAVY CHEST/PALPITATIONS Time Seen by Provider: 09/21/19 14:38 Source of Information: Reports: Patient, RN, RN Notes Reviewed History Limitations: Reports: No Limitations - History of Present Illness INITIAL COMMENTS - FREE TEXT/NARRATIVE: Patient presents to ER by POV with a complaint of a fever for 1 day. She has had a dry hacky cough for a month and then began having fever, congestion and flu-like symptoms yesterday. Denies sore throat, nausea or vomiting. She has been taking over the counter cough and congestion medications without relief. Onset: Gradual Duration: Getting Worse Location: Reports: Chest Quality: Reports: Ache Severity: Moderate Improves with: Reports: None Worsens with: Reports: None Associated Symptoms: Reports: No Other Symptoms - Related Data Allergies Allergy/AdvReac Type Severity Reaction Status Date / Time carbamazepine [From Tegretol] Allergy Airway Verified 09/21/19 14:35 Tightness phenytoin sodium Allergy Airway Verified 09/21/19 14:35 [From Dilantin] Tightness phenytoin sodium extended Allergy Airway Verified 09/21/19 14:35 [From Dilantin] Tightness primidone [From Mysoline] Allergy Airway Verified 09/21/19 14:35 Tightness Home Meds: Home Meds Losartan [Cozaar] 100 mg PO DAILY 11/25/16 [History] Pantoprazole Sodium 40 mg PO DAILY 11/25/16 [History] Simvastatin 20 mg PO DAILY 11/25/16 [History] Aspirin [Ecotrin EC] 81 mg PO DAILY 05/02/18 [History] NIFEdipine [Nifedipine ER] 30 mg PO DAILY 06/28/18 [History] Spironolactone [Aldactone] 25 mg PO DAILY 11/27/18 [History] Past Medical History Other HEENT History: c/o ringing in ears, sometimes one ear, sometimes both for the last 2 weeks Cardiovascular History: Reports: High Cholesterol, Hypertension Other Cardiovascular History: has had irregular heart beat in the past. Denies any specific arrhythmia. Gastrointestinal History: Reports: GERD Genitourinary History: Reports: Renal Disease, Other (See Below) (renal stenosis ) Other Genitourinary History: reports she has passed a small kidney stone in the past [employer] History: Reports: Musculoskeletal History: Reports: Fibromyalgia Neurological History: Reports: Head Trauma, Migraines, Seizure Other Neuro History: History of migraines, history of head injury and seizures during childhood. Endocrine/Metabolic History: Reports: Obesity/BMI 30+ Hematologic History: Reports: B12 Deficiency Other Hematologic History: History of iron infusions and low ferritin level - Past Surgical History Other Musculoskeletal Surgeries/Procedures:: right hip replacement Social & Family History - Family History Family Medical History: Noncontributory Cardiac: Reports: Heart Failure, [place], Pacemaker - Caffeine Use Caffeine Use: Reports: Coffee Other Caffeine Use: 2 CUPS OF COFFEE AVERAGE DAILY - Living Situation & Occupation Living situation: Reports: , with Spouse Occupation: Employed ED ROS GENERAL - Review of Systems Review Of Systems: Comprehensive ROS is negative, except as noted in HPI. ED EXAM, GENERAL - Physical Exam Exam: See Below Exam Limited By: No Limitations General Appearance: Alert, WD/WN, No Apparent Distress, Obese Eye Exam: Bilateral Eye: Normal Inspection Nose: Nasal Drainage (Small amt. clear mucus) Throat/Mouth: Normal Inspection, Normal Lips, Normal Teeth, Normal Gums, Normal Oropharynx, Normal Voice, No Airway Compromise Head: Atraumatic, Normocephalic Neck: Normal Inspection, Supple, Non-Tender, Full Range of Motion. No: Lymphadenopathy (L), Lymphadenopathy (R) Respiratory/Chest: No Respiratory Distress, No Accessory Muscle Use, Other (Dry cough). No: Rales, Rhonchi, Wheezing, Stridor Cardiovascular: Normal Peripheral Pulses, Regular Rate, Rhythm, No Edema, Tachycardia GI/Abdominal: Normal Bowel Sounds, Soft, Non-Tender Back Exam: Normal Inspection Extremities: Normal Inspection, No Pedal Edema Neurological: Alert, Oriented, CN II-XII Intact, Normal Cognition, No Motor/ Sensory Deficits Psychiatric: Normal Affect, Normal Mood Skin Exam: Warm, Dry, Intact, Normal Color, No Rash EKG INTERPRETATION EKG Date: 09/21/19 Time: 14:41 Rhythm: Other (sinus tachycardia) Rate (Beats/Min): 124 [place]: Normal P-Wave: Present (with probable left atgrial enlargement) QRS: Normal ST-T: Normal QT: Normal Comparison: Change From Previous EKG (from sinus rhythm to sinus tachycardia.) Course - Vital Signs Last Recorded V/S: Last Vital Signs Temp 101 F H 09/21/19 14:30 Pulse 121 H 09/21/19 14:30 Resp 20 09/21/19 14:30 BP 158/64 H 09/21/19 14:30 Pulse Ox 98 09/21/19 14:30 - Orders/Labs/Meds Orders: Active Orders 24 hr Category Date Time Status EKG 12 Lead [EKG Documentation Completion] [RC] STAT Care 09/21/19 14:33 Active Chest 2V [CR] Stat Exams 09/21/19 14:42 Taken Sodium Chloride 0.9% [Normal Saline] 1,000 ml Med 09/21/19 15:11 Active IV .BOLUS Medication Orders Sodium Chloride (Normal Saline) 1,000 mls @ 999 mls/hr IV .BOLUS ONE Stop: 09/21/19 16:11 Last Admin: 09/21/19 15:17 Dose: 999 mls/hr Labs: Laboratory Tests 09/21/19 09/21/19 Range/Units 14:50 14:50 WBC 8.1 (5.0-10.0) 10^3/uL RBC 4.04 L (4.2-5.4) 10^6/uL Hgb 12.9 (12.0-16.0) g/dL Hct 38.0 (37.0-47.0) % MCV 94.1 (80-100) fL MCH 31.9 (27.0-34.0) pg MCHC 33.9 (33.0-35.0) g/dL Plt Count 191 (150-450) 10^3/uL Neut % (Auto) 83.5 H (42.2-75.2) % Lymph % (Auto) 3.7 L (20.5-50.1) % [place] % (Auto) 11.2 H (2-8) % Eos % (Auto) 1.4 (1.0-3.0) % Baso % (Auto) 0.2 (0.0-1.0) % Sodium 136 (135-145) mmol/L Potassium 3.5 L (3.6-5.0) mmol/L Chloride 104 (101-111) mmol/L Carbon Dioxide 22.0 (21.0-31.0) mmol/L Anion Gap 13.5 BUN 12 (7-18) mg/dL Creatinine 1.0 (0.6-1.3) mg/dL Est Cr Clr Drug Dosing 64.88 mL/min Estimated GFR (MDRD) 58 BUN/Creatinine Ratio 12.00 Glucose 105 (74-105) mg/dL Calcium 9.0 (8.4-10.2) mg/dl Total Bilirubin 0.4 (0.2-1.0) mg/dL AST 20 (10-42) IU/L ALT 17 (10-60) IU/L Alkaline Phosphatase 61 (42-121) IU/L Troponin I < 0.02 (0.00-0.02) ng/ml Total Protein 7.0 (6.7-8.2) g/dl Albumin 4.3 (3.2-5.5) g/dl Globulin 2.7 Albumin/Globulin Ratio 1.59 Influenza A: Positive. Influenza B: Negative. Meds: Medications Generic Name Dose Route Start Last Admin Trade Name Freq PRN Reason Stop Dose Admin Sodium Chloride 1,000 mls @ 999 mls/hr 09/21/19 15:11 09/21/19 15:17 Normal Saline IV 09/21/19 16:11 999 mls/hr .BOLUS ONE Administration Discontinued Medications Generic Name Dose Route Start Last Admin Trade Name Freq PRN Reason Stop Dose Admin Acetaminophen 650 mg 09/21/19 14:42 09/21/19 14:53 Tylenol PO 09/21/19 14:43 650 mg NOW ONE Administration Benzonatate 200 mg 09/21/19 14:42 09/21/19 14:53 Tessalon Perles PO 09/21/19 14:43 200 mg ONETIME ONE Administration - Radiology Interpretation Free Text/Narrative:: XR Chest: no acute process, see Rad. report. Departure - Departure Time of Disposition: 15:30 Disposition: Home, Self-Care 01 Condition: Good Clinical Impression: Influenza A - Discharge Information *PRESCRIPTION DRUG MONITORING PROGRAM REVIEWED*: Not Applicable *COPY OF PRESCRIPTION DRUG MONITORING REPORT IN PATIENT SHANI: Not Applicable Instructions: Influenza, Adult, [id number] Forms: ED Department Discharge Additional Instructions: RX: Promethazine Codeine syrup. RX: Tamiflu 75mg. Drink plenty of fluids. Rest. Follow up in clinic if not improving in 7 to 10 days. Return to ER if any breathing difficulties develop. Sepsis Event Note - Focused Exam Vital Signs: Vital Signs Temp Pulse Resp BP Pulse Ox 09/21/19 14:30 101 F H 121 H 20 158/64 H 98 Date Exam was Performed: 09/21/19 Time Exam was Performed: 15:33 - My Orders Last 24 Hours: My Active Orders 09/21/19 14:33 EKG 12 Lead [EKG Documentation Completion] [RC] STAT 09/21/19 14:42 Chest 2V [CR] Stat 09/21/19 15:11 Sodium Chloride 0.9% [Normal Saline] 1,000 ml IV .BOLUS - Assessment/Plan Last 24 Hours: My Active Orders 09/21/19 14:33 EKG 12 Lead [EKG Documentation Completion] [RC] STAT 09/21/19 14:42 Chest 2V [CR] Stat 09/21/19 15:11 Sodium Chloride 0.9% [Normal Saline] 1,000 ml IV .BOLUS I have read and agree with the documentation that has been completed regarding this visit. By signing this record, I attest that the documentation was completed in my physical presence and is an accurate record of the encounter.
== END 2019-09-21 16:20 | disposition home or self-care (01) ==
LOC: DL.ED 14:28
DX: J10.1 Influenza due to other identified influenza virus with other respiratory manifestations (principal); I10 Essential (primary) hypertension; Z88.8 Allergy status to other drugs, medicaments and biological substances; Z79.82 Long term (current) use of aspirin; Z79.899 Other long term (current) drug therapy
CPT/HCPCS: 36415; 71046; 80053; 84484; 85025; 87804; 93005; 96360; 99284; A9270; J7030

== ENCOUNTER 2021-08-06 08:15 | Emergency (ER) | payer BC | END 2021-08-06 08:35 | disposition left against medical advice (07) | LOC: DL.ED 08:15 | DX: Z53.21 Procedure and treatment not carried out due to patient leaving prior to being seen by health care provider (principal) ==

== ENCOUNTER 2021-08-09 11:49 | Emergency (ER) | payer BC ==
[2021-08-09 12:07] VITALS: BP 147/85; PULSE 70
[2021-08-09] MEDS ORDERED: Sodium Chloride 0.9% 10 ML Syringe FLUSH PRN (12:17)
[2021-08-09 13:27] LABS: PTT,PARTIAL THROMBOPLSTIN TIME 22.4 SEC (22.0-34.0)
[2021-08-09 13:30] LABS: ANION GAP 15.4 mEq/L (7-13)
[2021-08-09] MEDS ORDERED: Dexamethasone 4 MG/ML SDV IVPUSH ONE (13:43)
== END 2021-08-09 14:20 | disposition home or self-care (01) ==
LOC: DL.ED 11:49
DX: U07.1 COVID-19 (principal); E78.00 Pure hypercholesterolemia, unspecified; I10 Essential (primary) hypertension; J45.909 Unspecified asthma, uncomplicated; K21.9 Gastro-esophageal reflux disease without esophagitis; E66.9 Obesity, unspecified; Z68.41 Body mass index [BMI] 40.0-44.9, adult; Z88.8 Allergy status to other drugs, medicaments and biological substances; Z79.82 Long term (current) use of aspirin; Z79.899 Other long term (current) drug therapy
CPT/HCPCS: 36415; 71250; 80053; 82728; 83880; 84484; 85025; 85379; 85610; 85730; 86140; 96374; 99285; J1100

== ENCOUNTER 2021-12-03 06:15 | Emergency (ER) | payer OTHER, BC ==
[2021-12-03 09:19] VITALS: BP 151/96; PULSE 70
== END 2021-12-03 10:09 | disposition home or self-care (01) ==
LOC: DL.ED 06:15
DX: S62.175A Nondisplaced fracture of trapezium [larger multangular], left wrist, initial encounter for closed fracture (principal); K21.9 Gastro-esophageal reflux disease without esophagitis; E78.00 Pure hypercholesterolemia, unspecified; I10 Essential (primary) hypertension; E66.9 Obesity, unspecified; Z68.41 Body mass index [BMI] 40.0-44.9, adult; Z88.8 Allergy status to other drugs, medicaments and biological substances; Z79.82 Long term (current) use of aspirin; Z79.899 Other long term (current) drug therapy; Z87.891 Personal history of nicotine dependence; W01.0XXA Fall on same level from slipping, tripping and stumbling without subsequent striking against object, initial encounter
CPT/HCPCS: 73030-LT; 73110-LT; 73130-50; 99283

== ENCOUNTER 2023-05-29 14:49 | Emergency (ER) | payer BC ==
[2023-05-29 14:56] VITALS: BP 115/78; PULSE 96
[2023-05-29] MEDS ORDERED: diphenhydrAMINE 50 MG/ML SDV IVPUSH ONE (14:58)
== END 2023-05-29 15:07 ==
LOC: DL.ED 14:49
DX: T78.1XXA Other adverse food reactions, not elsewhere classified, initial encounter (principal); E78.00 Pure hypercholesterolemia, unspecified; I10 Essential (primary) hypertension; K21.9 Gastro-esophageal reflux disease without esophagitis; E66.9 Obesity, unspecified; Z86.16 Personal history of COVID-19; Z79.82 Long term (current) use of aspirin; Z79.899 Other long term (current) drug therapy; Z88.8 Allergy status to other drugs, medicaments and biological substances
CPT/HCPCS: 96374; 99282; 99284; J1200